=== PATIENT | male | born 1970 | race African-American/Black ===

== ENCOUNTER 2016-11-16 18:12 | Emergency (ER) | payer OTHER ==
[2016-11-16 18:17] VITALS: BP 136/90; PULSE 72; TEMP 98.4; BMI 42.5
--- NOTE | 2016-11-16 18:27 | PDOC ---
History of Present Illness <Nenita Starr - Last Filed: 11/16/16 19:21> - General History Source: Patient Exam Limitations: No Limitations - History of Present Illness Initial Comments: 11/16/16 18:16 Is a 46-year-old male with a history of hypertension and asthma who presents emergency Department with left knee pain. Patient states he works as a daily [employer] on the midnight to 8AM shift. Patient states typically his job involves a lot of walking. 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 By 7 AM he noticed left knee swelling and pain. He was barely able to move his knee. Went home, iced and elevated his knee. His symptoms have not improved. Patient had to call out of both jobs this evening. He was told to call the nurse hotline who assessed him and recommend that he seek medical attention. Patient wanted to follow up with his primary care physician however the office was not open. Patient presents to the ER for evaluation PMH: HTN, Asthma PSH: tibial osteotomy Mes: Albuterol, Losartan ALL: NKDA Social: Denies drug or cigarette use GENERAL/CONSTITUTIONAL: No: fever, chills, weakness, loss of appetite. MUSCULOSKELETAL: Yes: left knee pain No: back pain, neck pain, muscle swelling or pain SKIN: No: lesions, pallor, rash or easy bruising. NEUROLOGIC: No: paresthesias, weakness GENERAL: The patient is in no acute distress. EXTREMITIES: Normal range of motion (somewhat limited due to pain), no edema. NEUROLOGICAL: Cranial nerves II through XII grossly intact. Normal speech. No focal neurological deficits. MUSCULOSKELETAL: Left knee pain and swelling, Limited range of motion, No bruising noted, actively able to bend and extend the knee Anterior drawer/posterior drawer negative SKIN: Warm, Dry, normal turgor, no rashes or lesions noted. <Lori Barcenas - Last Filed: 11/17/16 07:52> - General Chief Complaint: Pain, Acute Stated Complaint: left knee pain Time Seen by Provider: 11/16/16 18:15 Past History <Nenita Starr - Last Filed: 11/16/16 19:21> - Past Medical History HTN: Yes - Immunization History Td Vaccination: No TDAP Vaccination: Yes (06/05/16) - Psycho/Social/Smoking Cessation Hx Anxiety: No Suicidal Ideation: No Smoking Status: No Smoking History: Smoker current status UNK Have you smoked in the past 12 months: No Number of Cigarettes Smoked Daily: 0 Hx Alcohol Use: No Drug/Substance Use Hx: No <Lori Barcenas - Last Filed: 11/17/16 07:52> - Past Medical History Allergies/Adverse Reactions: Allergies Allergy/AdvReac Type Severity Reaction Status Date / Time No Known Allergies Allergy Verified 11/16/16 18:12 Home Medications: Ambulatory Orders Acetaminophen W/ Codeine #3 [Tylenol # 3 -] 1 tab PO TID PRN #15 tablet MDD 3 Albuterol Sulfate Inhaler - [Ventolin Hfa Inhaler -] 1 - 2 inh PO PRN PRN Losartan Potassium 0 mg PO DAILY 11/16/16 *Physical Exam - Vital Signs Last Vital Signs Temp Pulse Resp BP Pulse Ox 98.4 F 72 18 136/90 100 11/16/16 18:12 11/16/16 18:12 11/16/16 18:12 11/16/16 18:12 11/16/16 18:12 <Nenita Starr - Last Filed: 11/16/16 19:21> ED Treatment Course - RADIOLOGY Radiograph Interpretation: 11/16/16 19:21 EXAM#: TYPE/EXAM: RESULT: [id number] RAD/KNEE 3 POS-LEFT Knee pain. X-ray of the left knee, 3 views. There are mild degenerative changes in the involving the knee joint and patellofemoral joint. No fracture, dislocation, bone destruction or joint effusion is identified. Impression: Mild degenerative changes with questionable small loose body seen within the knee joint space, anteriorly. Correlation with MRI would be the study of choice for further evaluation. Reported By: Flora Pelletier MD 11/16/16 1919 <Nenita Starr - Last Filed: 11/16/16 19:21> Medical Decision Making - Medical Decision Making 11/16/16 18:30 xray Discharge Ortho follow 11/16/16 18:54 Xray does not appear to demonstrate fracture or dislocation Pt is able to ambulate Minimal swelling noted Pt describes more a hesitance when he attempts to walk (he likens this to patients who develop foot drop) I have explained this likely means there is a ligamentous injury or meniscal injury for which he will need Ortho follow up and possibly MRI Will discharge to home Will ask pt to follow up with Ortho this week Return to the ER for any other concerns or complaints <Lori Barcenas - Last Filed: 11/17/16 07:52> *DC/Admit/Observation/Transfer <Almita Starrica - Last Filed: 11/16/16 19:21> - Discharge Dispostion Admit: No <Lori Barcenas - Last Filed: 11/17/16 07:52> Diagnosis at time of Disposition: Knee injury Qualifiers: Encounter type: initial encounter Laterality: left Qualified Code(s): S89.92XA - Unspecified injury of left lower leg, initial encounter - Discharge Dispostion Disposition: HOME Condition at time of disposition: Stable - Prescriptions Prescriptions: Acetaminophen W/ Codeine #3 [Tylenol # 3 -] 1 tab PO TID PRN #15 tablet MDD 3 PRN Reason: Pain - Referrals Referrals: Rogelio Bean MD [Staff Physician] - - Patient Instructions Printed Discharge Instructions: DI for Knee Pain, DI for Knee Effusion, DI for Knee Sprain Additional Instructions: [place] Thank you for coming in to the ER today You will need to follow up with the orthopedic doctors Continue wearing the brace as is comfortable for you Continue applying ice and elevating Please return to the ER with swelling of the lower extremity or any other concerns or complaints - Post Discharge Activity Work/School Note: Back to Work
== END 2016-11-16 19:29 | disposition home or self-care (01) ==
LOC: FER 18:12
PROC: 2W3RX1Z Immobilization of Left Lower Leg using Splint (ICD-10-PCS; principal; 2016-11-16)
DX: S89.92XA Unspecified injury of left lower leg, initial encounter (principal); X58.XXXA Exposure to other specified factors, initial encounter; Y93.9 Activity, unspecified; Y92.9 Unspecified place or not applicable; Y99.0 Civilian activity done for income or pay; I10 Essential (primary) hypertension; J45.909 Unspecified asthma, uncomplicated
CPT/HCPCS: 29515; 73562-TC-LT; 99282-25

== ENCOUNTER 2018-09-06 12:09 | Emergency (ER) | payer OTHER ==
[2018-09-06 12:35] VITALS: PULSE 73; TEMP 98.4; BMI 41.8
[2018-09-06] MEDS ORDERED: ALBUTEROL SO4 2.5/IPRATROPIUM 0.5 INH SOL 3 ML VIAL.NEB. NEB ONE ×2 (14:29→14:31)
--- NOTE | 2018-09-06 14:51 | PDOC ---
Attending Attestation - Resident Resident Name: HobbsMichael - ED Attending Attestation I have performed the following: I have examined & evaluated the patient, The case was reviewed & discussed with the resident, I agree w/resident's findings & plan, Exceptions are as noted - HPI HPI: 09/06/18 15:11 48-year-old male with a history of hypertension, asthma (no admissions, no intubations, albuterol PRN) presents to the emergency department with 2 weeks of progressive dry cough and 3 days of intermittent left-sided chest pain that worse with deep inspiration. Denies any fevers or chills. Reports cough has been keeping him up at night. Denies shortness of breath. Has been using his albuterol at home with minimal relief. Denies any sick contacts. Denies any hormone use. Denies any recent travel or immobility or long car rides. Denies any history of clots. Has not seen his PMD for these sxs. Denies headache, N/V/D , abd pain, LE edema, calf pain. No other tx tried. - Physicial Exam PE: 09/06/18 15:13 GENERAL: Awake, alert, and fully oriented, in no acute distress EYES: PERRLA, EOMI, sclera anicteric, conjunctiva clear ENT: Auricles normal inspection, hearing grossly normal, nares patent, oropharynx clear without exudates. Moist mucosa NECK: Normal ROM, supple, no lymphadenopathy, JVD, or masses LUNGS: Breath sounds equal, clear to auscultation bilaterally. Mild expiratory wheezing with good airmovement, wheezing clears with coughing. No WOB. No crackles RR 16. HEART: Regular rate and rhythm, normal S1 and S2, no murmurs, rubs or gallops ABDOMEN: Soft, nontender, normoactive bowel sounds. No guarding, no rebound. No masses EXTREMITIES: Normal range of motion, no edema. No cords, erythema, or tenderness NEUROLOGICAL: Normal speech, cranial nerves intact, equal strength and sensation b/l, normal gait SKIN: Warm, Dry, normal turgor, no rashes or lesions noted. - Medical Decision Making 09/06/18 15:14 48yo M presents to the ED with 2 weeks of cough and 3 days of intermittent L sided pleuritic CP. CP is not exertional. Denies current CP. Vitals with elevated BP, otherwise normal O2 sat and HR. Pt PERCs out and thus unlikely PE. Given hx of asthma and now wheezing, likely asthma exacerbation, will treat with nebs and steroids. CXR clear with no infiltrate. Will check EKG and troponin but atypical story for cardiac CP. 09/06/18 16:08 Trop neg, EKG non ischemic Pt better after nebs, steroids Pt to f/u with PMD within 1 week Requests DC home I discussed the physical exam findings, ancillary test results and final diagnoses with the patient. I answered all of the patient's questions. The patient was satisfied with the care received and felt comfortable with the discharge plan and treatment plan. The patient will call their primary care physician within 24 hours to arrange follow-up and will return to the Emergency Department with any new, persistent or worsening symptoms. Heart Score/ECG Review #1 09/06/18 16:11 Twelve-lead EKG was performed and reviewed by me. NSR, rate 71, normal axis and intervals. No NALDO or TWI
--- NOTE | 2018-09-06 14:58 | PDOC ---
History of Present Illness - General Chief Complaint: Respiratory Stated Complaint: COUGH Time Seen by Provider: 09/06/18 13:46 History Source: Patient Exam Limitations: No Limitations - History of Present Illness Initial Comments: 09/06/18 14:52 48m with pmh of mild asthma and htn presents with 2 weeks of dry cough. The cough is associated with stuffy and drippy nose and and is making him short of breath especially indoors. Tried taking his Albuterol pump yesterday but with little relief. Usually uses his pump occasionally when short of breath. Works a lot on the outside. Has not been vaccinated for the flu this year. Past History - Past Medical History Allergies/Adverse Reactions: Allergies Allergy/AdvReac Type Severity Reaction Status Date / Time No Known Allergies Allergy Verified 09/06/18 12:10 Home Medications: Ambulatory Orders Albuterol Sulfate Inhaler - [Ventolin Hfa Inhaler -] 1 - 2 inh PO PRN PRN Losartan Potassium 0 mg PO DAILY 11/16/16 Amlodipine Besylate 0 mg PO DAILY 09/06/18 Prednisone [Prednisone 50 MG TABLETS] 50 mg PO DAILY #4 tablet 09/06/18 COPD: No HTN: Yes - Immunization History Td Vaccination: No TDAP Vaccination: (06/05/16) - Suicide/Smoking/Psychosocial Hx Smoking Status: No Smoking History: Unknown if ever smoked Have you smoked in the past 12 months: No Number of Cigarettes Smoked Daily: 4 'Breaking Loose' booklet given: 11/16/16 Hx Alcohol Use: Yes Drug/Substance Use Hx: No Substance Use Type: Alcohol Review of Systems - Review of Systems Able to Perform ROS?: Yes Is the patient limited Hungarian proficient: No Constitutional: No: Symptoms Reported HEENTM: No: Symptoms Reported Respiratory: Yes: See HPI Cardiac (ROS): Yes: Chest Pain ABD/GI: No: Symptoms Reported : No: Symptoms Reported Musculoskeletal: No: Symptoms Reported Integumentary: No: Symptoms Reported Neurological: No: Symptoms reported All Other Systems: Reviewed and Negative *Physical Exam - Vital Signs Last Vital Signs Temp Pulse Resp BP Pulse Ox 98.4 F 73 18 159/106 H 97 09/06/18 12:10 09/06/18 12:10 09/06/18 12:10 09/06/18 12:10 09/06/18 12:10 - Physical Exam General Appearance: Yes: Nourished, Appropriately Dressed, Mild Distress, Obese HEENT: positive: EOMI, GERALDINE, Normal ENT Inspection, Nasal Congestion, Rhinorrhea Respiratory/Chest: positive: Lungs Clear, Normal Breath Sounds. negative: Chest Tender, Respiratory Distress Cardiovascular: positive: Regular Rhythm, Regular Rate, S1, S2 Gastrointestinal/Abdominal: positive: Normal Bowel Sounds, Flat, Soft. negative : Tender Musculoskeletal: positive: Normal Inspection. negative: CVA Tenderness Extremity: positive: Normal Capillary Refill, Normal Inspection, Normal Range of Motion Integumentary: positive: Normal Color, Dry, Warm Neurologic: positive: Fully Oriented, Alert, Normal Mood/Affect, Normal Response , Motor Strength 02/15 ED Treatment Course - LABORATORY CBC & Chemistry Diagram: 09/06/18 15:10 09/06/18 15:10 - RADIOLOGY Radiology Studies Ordered: Category Date Time Status CHEST PA & LAT [RAD] Stat Radiology 09/06/18 13:46 Completed - Medications Given in the ED: ED Medications Discontinued Medications Generic Name Dose Route Start Last Admin Trade Name Freq PRN Reason Stop Dose Admin Albuterol/Ipratropium 1 amp 09/06/18 14:29 09/06/18 14:34 Duoneb - NEB 09/06/18 14:30 1 amp ONCE ONE Administration Medical Decision Making - Medical Decision Making 09/06/18 15:16 pneumonia vs asthma exacerbation vs viral URI vs bronchitis. Chest xray: No acute chest pathology. Will treat patient with duoneb to try to resolve symptoms of dyspnea. Will also r/o cardiac etiology of chest pain with EKG and trops. 09/06/18 15:51 EKG normal sinus, normal ekg Trops negative. Will discharge on 4 days of prednisone and f/u. *DC/Admit/Observation/Transfer Diagnosis at time of Disposition: Cough - Discharge Dispostion Disposition: HOME Condition at time of disposition: Stable Decision to Admit order: No - Prescriptions Prescriptions: Prednisone [Prednisone 50 MG TABLETS] 50 mg PO DAILY #4 tablet - Referrals - Patient Instructions Printed Discharge Instructions: DI for Chronic Bronchitis Additional Instructions: Come back to the Emergency Department for any new, worsening or concerning symptoms. Follow up with your primary care provider. line supply your medication at the pharmacy. - Post Discharge Activity
[2018-09-06] MEDS ORDERED: predniSONE 20 MG TABLET (UD) PO ONE (15:16)
[2018-09-06 15:21] LABS: MEAN PLT VOLUME 6.8 fl (7.5-11.1)
[2018-09-06] MEDS ORDERED: predniSONE 20 MG TABLET (UD) ONE (15:22)
[2018-09-06 15:23] LABS: BASO % 2.6 % (0-2.0); EOS % 3.3 % (0-4.5); LYMPH % 27.2 % (8-40); MCH 28.9 pg (25.7-33.7); MCHC 33.3 g/dl (32.0-35.9); MEAN CELL VOLUME 86.8 fl (80-96); MONO % 8.7 % (3.8-10.2); NEUT % 58.2 % (42.8-82.8); PLATELET COUNT 251 K/MM3 (134-434); RBC 5.19 M/mm3 (4.00-5.60); RDW 12.7 % (11.9-15.9); WHITE BLOOD COUNT 6.9 K/mm3 (4.0-10.8)
[2018-09-06 15:32] LABS: ALBUMIN 3.8 g/dl (3.5-5.0); ALK PHOS 56 U/L (32-92); ANION GAP 6 MMOL/L (8-16); BILIRUBIN,TOTAL 0.3 mg/dl (0.2-1.0); BLOOD UREA NITROGEN 15 mg/dl (7-18); CALCIUM 8.9 mg/dl (8.4-10.2); CHLORIDE 105 mmol/L (98-107); CO2 26 mmol/L (22-28); CREATININE 0.7 mg/dl (0.6-1.3); GLUCOSE,RANDOM 93 mg/dl (74-106); SGOT/AST 22 U/L (10-42); SGPT/ALT 29 U/L (10-40); SODIUM 137 mmol/L (136-145); TOT PROT 7.6 g/dl (6.4-8.3)
[2018-09-06 16:01] VITALS: BP 148/98
--- NOTE | 2018-09-07 13:46 | EKG ---
Test Reason : Blood Pressure : / mmHG Vent. Rate : 071 BPM Atrial Rate : 071 BPM P-R Int : 176 ms QRS Dur : 092 ms QT Int : 416 ms P-R-T Axes : 043 025 037 degrees QTc Int : 452 ms NORMAL SINUS RHYTHM NORMAL ECG NO PREVIOUS ECGS AVAILABLE Confirmed by KAZ ANGLIN MD ([id number]) on 09/07/2018 1:46:05 PM Referred By: ALEE Confirmed By:KAZ ANGLIN MD
== END 2018-09-06 16:15 | disposition home or self-care (01) ==
LOC: FER 12:09
PROC: 3E0F7GC Introduction of Other Therapeutic Substance into Respiratory Tract, Via Natural or Artificial Opening (ICD-10-PCS; principal; 2018-09-06)
DX: R05 Cough (principal); I10 Essential (primary) hypertension; J45.909 Unspecified asthma, uncomplicated
CPT/HCPCS: 36415; 71046-TC-FY; 80053; 84484; 85025; 93005; 99283-25